=== PATIENT | female | born 1965 | race Caucasian/White ===

== ENCOUNTER → 2022-08-16 10:01 | Outpatient (BNVA) | payer OTHER, SELFPAY | PROVIDERS: Visit Provider Internal Medicine | DX: S80.01XA Contusion of right knee, initial encounter (principal); S90.01XA Contusion of right ankle, initial encounter; S90.31XA Contusion of right foot, initial encounter; S40.021A Contusion of right upper arm, initial encounter; W18.09XA Striking against other object with subsequent fall, initial encounter; Z23 Encounter for immunization | CPT/HCPCS: 73562; 73630; 90715; 99203 ==

== ENCOUNTER → 2022-08-21 08:14 | Outpatient (BNVA) | payer OTHER, SELFPAY | PROVIDERS: Visit Provider Internal Medicine | DX: S91.311A Laceration without foreign body, right foot, initial encounter (principal); S80.11XA Contusion of right lower leg, initial encounter; S40.021A Contusion of right upper arm, initial encounter; W18.09XA Striking against other object with subsequent fall, initial encounter; R10.32 Left lower quadrant pain | CPT/HCPCS: 99213 ==

== ENCOUNTER 2022-08-24 08:58 | Outpatient (REF) | payer OTHER, SELFPAY ==
--- NOTE | ~2022-08-24 | MR_ITS ---
EXAMINATION: MRI ANKLE WITHOUT CONTRAST, RIGHT CLINICAL INFORMATION: Posterior right ankle pain and tenderness following an injury on 08/16/2022. COMPARISON: Right foot radiographs dated 08/16/2022. TECHNIQUE: Multisequence MR imaging of the right ankle was obtained without contrast on a high-field strength scanner. FINDINGS: BONE AND ARTICULAR CARTILAGE: Prominent plantar and dorsal calcaneal spurs. Full-thickness articular cartilage loss at the medial tibiotalar joint with mild subchondral cystic change and prominent marrow edema. No evidence of fragmentation or instability. Small tibiotalar marginal osteophytes. Articular cartilage thinning with subchondral cystic change at the cuneonavicular joint. No acute fracture or dislocation. ACHILLES TENDON: Diffuse thickening of the Achilles tendon with intrasubstance increased T2 signal consistent with chronic tendinosis. Calcifications seen on the prior radiographs are poorly visualized on MR examination. OTHER TENDONS: Trace fluid within the posterior tibialis tendon sheath, which could represent normal variation versus minimal tenosynovitis. LIGAMENTS: No evidence of acute ligament injury. Remote sprain/partial tear of the anterior talofibular ligament. JOINT FLUID AND SOFT TISSUES: Trace tibiotalar and posterior subtalar joint effusions. Mild fluid and edema within the retrocalcaneal bursa consistent mild bursitis. PLANTAR FASCIA: Thickening of the proximal plantar fascia with increased T2 signal consistent with chronic plantar fasciitis. No acute edema or measurable tear. SINUS TARSI AND TARSAL TUNNEL: Patent. 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 No evidence of fragmentation or instability. Trace tibiotalar and posterior subtalar joint effusions. Prominent plantar calcaneal spur with chronic plantar fasciitis. No acute edema or measurable tear. Chronic Achilles tendinosis with calcifications seen on the prior radiographs. Mild retrocalcaneal bursitis. No measurable Achilles tendon tear. Trace fluid within the posterior tibialis tendon sheath, which could represent normal variation versus minimal tenosynovitis.
== END 2022-08-24 08:59 | disposition home or self-care (01) ==
LOC: HO.MRI 08:58
PROVIDERS: Visit Provider Internal Medicine
DX: S86.011A Strain of right Achilles tendon, initial encounter (principal); X58.XXXA Exposure to other specified factors, initial encounter; Y93.9 Activity, unspecified; Y92.9 Unspecified place or not applicable; Y99.9 Unspecified external cause status
CPT/HCPCS: 73721

== ENCOUNTER → 2022-08-30 07:44 | Outpatient (BNVA) | payer OTHER, SELFPAY | PROVIDERS: Visit Provider Internal Medicine | DX: S86.011A Strain of right Achilles tendon, initial encounter (principal); S86.811A Strain of other muscle(s) and tendon(s) at lower leg level, right leg, initial encounter; W18.09XA Striking against other object with subsequent fall, initial encounter | CPT/HCPCS: 99213 ==

== ENCOUNTER → 2022-09-10 08:06 | Outpatient (BNVA) | payer OTHER, SELFPAY | PROVIDERS: Visit Provider Internal Medicine | DX: S93.401A Sprain of unspecified ligament of right ankle, initial encounter (principal); W18.09XA Striking against other object with subsequent fall, initial encounter | CPT/HCPCS: 99213 ==